=== PATIENT | female | born 1965 | race Caucasian/White ===

== ENCOUNTER 2017-06-03 05:41 | Emergency (ER) | payer MEDICAID ==
[2017-06-03] MEDS: ALBUTEROL 0.083% (NEB) 2.5 MG/3 ML AMP HHN (06:23)
== END 2017-06-03 07:13 | disposition home or self-care (01) ==
LOC: FTE 05:41
DX: R05 Cough (principal); R06.2 Wheezing
CPT/HCPCS: 71045; 94664; 99284-25

== ENCOUNTER 2018-04-12 09:14 | Emergency (ER) | payer MEDICAID ==
[2018-04-12] MEDS: ONDANSETRON 4 MG INJ IV (10:17)
[2018-04-12] MEDS: morphine 4 MG/ML VIAL IV (10:18)
[2018-04-12] MEDS: DIPHTH/TET/ACEL PERTUSS (ADULT) 0.5 ML VIAL IM* (10:18)
[2018-04-12] MEDS ORDERED: LIDOCAINE 1% (MDV) 20 ML INJ SC (12:30)
[2018-04-12] MEDS: LIDOCAINE 1% (MPF) 5 ML VIAL SC (12:35)
== END 2018-04-12 15:05 | disposition home or self-care (01) ==
LOC: E/R 09:14 → FTE 15:05
DX: S51.812A Laceration without foreign body of left forearm, initial encounter (principal); S61.217A Laceration without foreign body of left little finger without damage to nail, initial encounter; R07.9 Chest pain, unspecified; V49.40XA Driver injured in collision with unspecified motor vehicles in traffic accident, initial encounter; Z23 Encounter for immunization
CPT/HCPCS: 12002; 71045; 72040; 72072; 72100; 73030; 73060; 73080-LT; 73090; 90471; 90715; 96374; 96375; 99284-25

== ENCOUNTER 2018-09-02 17:49 | Emergency (ER) | payer MEDICAID ==
[2018-09-02] MEDS: KETOROLAC 30 MG INJ IM (19:53)
== END 2018-09-02 21:21 | disposition home or self-care (01) ==
LOC: FTE 17:49
DX: M76.61 Achilles tendinitis, right leg (principal)
CPT/HCPCS: 73610; 73610-RT; 96372; 99284-25